=== PATIENT | male | born 1960 | race Caucasian/White ===

== ENCOUNTER 2016-11-30 09:03 | Inpatient (IN) | payer MEDICARE, OTHER ==
[~2016-11-30] VITALS: Ht 182.9 cm; Wt 63.2 kg
[~2016-11-30 09:03] MED LIST: CLON0.5T PO; CLOZ25TA4 PO; FLUV50TA3 PO
[2016-11-30 09:25] LABS: BASOPHILS # (AUTO) 0.1 /CMM (0.0-0.2); BASOPHILS % (AUTO) 0.4 % (0.0-2.0); DIFF TOTAL % 100 %; EOSINOPHILS # (AUTO) 0.1 /CMM (0.0-0.7); EOSINOPHILS % (AUTO) 0.6 % (0.0-6.0); HEMATOCRIT 38 % (39-51); HEMOGLOBIN 12.4 g/dL (13.5-17.5); LYMPHOCYTES # (AUTO) 0.8 /CMM (0.8-4.8); LYMPHOCYTES % (AUTO) 5.4 % (20.0-44.0); MEAN CORPUSCULAR HEMOGLOBIN 30 PG (26.0-33.0); MEAN CORPUSCULAR HGB CONC 33 g/dl (31.0-36.0); MEAN CORPUSCULAR VOLUME 92 fL (80-96); MONOCYTES # (AUTO) 1.5 /CMM (0.1-1.30); MONOCYTES % (AUTO) 9.5 % (2.0-12.0); NEUTROPHILS # (AUTO) 13.2 /CMM (1.8-8.9); NEUTROPHILS % (AUTO) 84.1 % (43.0-81.0); PLATELET COUNT (AUTO) 319 /CMM (150-450); RED BLOOD CELL COUNT(AUTO) 4.09 MIL/uL (4.5-6.0); WHITE BLOOD COUNT (AUTO) 15.7 K/uL (4.3-11.0)
[2016-11-30 09:36] LABS: ANION GAP 27 (5-14); CALCIUM, SERUM 9.6 mg/dL (8.5-10.1); CARBON DIOXIDE 17 mmol/L (21-32); CHLORIDE 103 mmol/L (98-107); CREATININE 1.9 mg/dL (0.6-1.3); GFR 37 mL/min (>60); GLUCOSE 112 mg/dL (74-106); SODIUM SERUM 143 mmol/L (136-145)
[2016-11-30] MEDS ORDERED: IV NS 0.9% 250 ML IV ONE (09:39)
[2016-11-30] MEDS ORDERED: IV NS 0.9% 500 ML IV ONE (09:39)
[2016-11-30] MEDS ORDERED: IV NS 0.9% 1,000 ML ONE ×2 (09:39→15:25)
[2016-11-30] MEDS ORDERED: IV SET PRIMARY 1 EA INFUS.SET MC ONE (09:39)
[2016-11-30 09:56] LABS: UREA NITROGEN, BLOOD 46 mg/dL (7-18)
[2016-11-30 10:00] LABS: KETONES,URINE 15 (NEGATIVE); LEUKOCYTE ESTERASE ,URINE Negative (NEGATIVE); PH,URINE 5.5 (5.0-8.0)
[2016-11-30] MEDS ORDERED: IV NS 0.9% 1,000 ML BAG IV ONE (10:00)
[2016-11-30 10:01] LABS: ADD UA MICROSCOPIC YES
[2016-11-30 10:07] LABS: TROPONIN I < 0.017 ng/mL (0.00-0.056)
[2016-11-30 10:14] LABS: ADD URINE CULTURE NO
[2016-11-30 10:19] LABS: CANNABINOID, URINE NEGATIVE (NEGATIVE); PHENCYCLIDINE SCREEN,URINE NEGATIVE (NEGATIVE)
[2016-11-30 10:47] LABS: LACTIC ACID 4.9 mmol/L (0.4-2.0)
[2016-11-30 10:52] LABS: *LACTIC ACID REFLEX FLAG YES
[2016-11-30] MEDS ORDERED: IV SET PRIMARY PUMP SET 1 EA INFUS.SET MC ONE ×2 (10:56→15:25)
[2016-11-30] MEDS ORDERED: VANCOMYCIN 1 GM in IV D5W 250 ML IV ONE (11:00)
[2016-11-30] MEDS ORDERED: CEFEPIME 1 GM in IV D5W 50 ML IV ONE (11:00)
[2016-11-30 12:09] LABS: BILIRUBIN,DIRECT 0.2 mg/dL (0.0-0.2); BILIRUBIN,TOTAL 0.7 mg/dL (0.2-1.0)
[2016-11-30] MEDS ORDERED: ACETAMINOPHEN 325 MG TABLET PO PRN (14:00)
[2016-11-30] MEDS ORDERED: MAG HYDROX/AL HYDROX/SIMETH 30 ML UDC PO PRN (14:00)
[2016-11-30] MEDS ORDERED: IV NS 0.9% 1,000 ML BAG IV PRN (14:00)
[2016-11-30] MEDS ORDERED: MAGNESIUM HYDROXIDE 30 ML UDC PO PRN (14:00)
[2016-11-30] MEDS ORDERED: BISACODYL SUPP (10 MG) 10 MG/SUPP.RECT SUPP.RECT RC PRN (14:00)
[2016-11-30] MEDS ORDERED: clonazePAM 0.5 MG TABLET PO PRN (14:00)
[2016-11-30] MEDS ORDERED: ONDANSETRON HCL/PF 4 MG/2 ML VIAL IVP PRN (14:00)
[2016-11-30] MEDS ORDERED: ZOLPIDEM TARTRATE 5 MG TABLET PO PRN (14:00)
[2016-11-30] MEDS ORDERED: HYDROCODONE/APAP 5/325MG 1 EACH TABLET PO PRN (14:00)
[2016-11-30] MEDS ORDERED: Z GUARD REMEDY 2 OZ OINT TP PRN (14:00)
[2016-11-30] MEDS: DOCUSATE SODIUM 100 MG CAPSULE PO SCH ×2 (14:26→16:44)
[2016-11-30 15:02] LABS: IRON, SERUM 18 ug/dl (50-175); PERCENT SATURATION 5 % (14-33); TOTAL IRON BINDING CAPACITY 352 ug/dl (250-450)
[2016-11-30 15:05] VITALS: BP 130/63
[2016-11-30] MEDS: IV NS 0.9% 1,000 ML IV PRN (15:36)
[2016-11-30 16:00] VITALS: BP 130/63
[2016-11-30] MEDS: CLOZAPINE 25 MG TABLET PO SCH (16:44)
[2016-11-30] MEDS: FLUVOXAMINE MALEATE 50 MG TABLET PO SCH (16:44)
[2016-11-30 20:00] VITALS: BP 115/53
[2016-12-01] VITALS: BP 120/60
[2016-12-01 04:00] VITALS: BP 121/66
[2016-12-01] MEDS: IV NS 0.9% 1,000 ML IV PRN ×2 (04:34→15:08)
[2016-12-01 06:33] LABS: BASOPHILS % (AUTO) 0.3 % (0.0-2.0); DIFF TOTAL % 100 %; EOSINOPHILS # (AUTO) 0.1 /CMM (0.0-0.7); EOSINOPHILS % (AUTO) 0.6 % (0.0-6.0); HEMATOCRIT 31 % (39-51); HEMOGLOBIN 10.5 g/dL (13.5-17.5); LYMPHOCYTES # (AUTO) 1.4 /CMM (0.8-4.8); LYMPHOCYTES % (AUTO) 14.6 % (20.0-44.0); MEAN CORPUSCULAR HEMOGLOBIN 31 PG (26.0-33.0); MEAN CORPUSCULAR HGB CONC 34 g/dl (31.0-36.0); MEAN CORPUSCULAR VOLUME 93 fL (80-96); MONOCYTES # (AUTO) 1.1 /CMM (0.1-1.30); MONOCYTES % (AUTO) 11.4 % (2.0-12.0); NEUTROPHILS # (AUTO) 6.8 /CMM (1.8-8.9); NEUTROPHILS % (AUTO) 73.1 % (43.0-81.0); PLATELET COUNT (AUTO) 232 /CMM (150-450); RED BLOOD CELL COUNT(AUTO) 3.36 MIL/uL (4.5-6.0); WHITE BLOOD COUNT (AUTO) 9.3 K/uL (4.3-11.0)
[2016-12-01 06:42] LABS: PROTHROMBIN TIME 10.8 SECS (9.5-12.7)
[2016-12-01 06:52] LABS: ALBUMIN 3.2 g/dL (3.4-5.0); BILIRUBIN,TOTAL 0.6 mg/dL (0.2-1.0); CALCIUM, SERUM 8.8 mg/dL (8.5-10.1); PHOSPHORUS 2.2 mg/dL (2.5-4.9); POTASSIUM 3.7 mmol/L (3.5-5.1); TOTAL PROTEIN, SERUM 6.5 g/dL (6.4-8.2)
[2016-12-01 07:08] LABS: THYROID STIMULATING HORMONE 1.373 uIU/mL (0.358-3.74)
[2016-12-01] MEDS: PANTOPRAZOLE 40 MG TABLET.DR PO SCH (07:30)
[2016-12-01 08:00] VITALS: BP 126/63
[2016-12-01 08:34] LABS: ERYTHROCYTE SEDIMENTATION RATE 13 MM/HR (0-20)
[2016-12-01] MEDS: FLUVOXAMINE MALEATE 50 MG TABLET PO SCH ×2 (08:41→17:00)
[2016-12-01] MEDS: CLOZAPINE 25 MG TABLET PO SCH ×2 (08:41→17:00)
[2016-12-01] MEDS: DOCUSATE SODIUM 100 MG CAPSULE PO SCH ×2 (08:41→17:00)
[2016-12-01 12:00] VITALS: BP 134/67
[2016-12-01] MEDS ORDERED: IV NS 0.9% 1,000 ML ONE (15:02)
[2016-12-01 16:00] VITALS: BP 131/67
[2016-12-01] MEDS ORDERED: K PHOS NEUTRAL 250 MG TABLET PO ONE (17:00)
[2016-12-01 20:00] VITALS: BP 139/74
[2016-12-02] VITALS: BP 127/81
[2016-12-02] MEDS: IV NS 0.9% 1,000 ML IV PRN ×2 (00:40→17:49)
[2016-12-02 04:00] VITALS: BP 137/75
[2016-12-02 06:39] LABS: CALCIUM, SERUM 8.2 mg/dL (8.5-10.1); CREATININE 0.9 mg/dL (0.6-1.3); PHOSPHORUS 1.9 mg/dL (2.5-4.9); POTASSIUM 3.2 mmol/L (3.5-5.1)
[2016-12-02] MEDS: PANTOPRAZOLE 40 MG TABLET.DR PO SCH (07:30)
[2016-12-02 08:00] VITALS: BP 137/71
[2016-12-02] MEDS: FLUVOXAMINE MALEATE 50 MG TABLET PO SCH ×2 (09:00→17:40)
[2016-12-02] MEDS: DOCUSATE SODIUM 100 MG CAPSULE PO SCH ×2 (09:00→17:39)
[2016-12-02] MEDS: CLOZAPINE 25 MG TABLET PO SCH ×2 (09:00→17:40)
[2016-12-02 12:00] VITALS: BP 135/78
[2016-12-02] MEDS: POTASSIUM CHLORIDE 20 MEQ TAB.PRT.SR PO SCH ×2 (12:42→13:37)
[2016-12-02] MEDS ORDERED: NEUTRA PHOS 1 POWD.PACKET PO ONE (14:00)
[2016-12-02 16:00] VITALS: BP 120/77
[2016-12-02 20:00] VITALS: BP_SYST 147; BP_SYST 97; BP_DIAS 44; BP_DIAS 84
[2016-12-03] VITALS: BP 131/73
[2016-12-03 04:00] VITALS: BP 121/67
[2016-12-03] MEDS: IV NS 0.9% 1,000 ML IV PRN ×2 (05:26→15:51)
[2016-12-03 06:01] VITALS: BP 121/67
[2016-12-03 06:59] LABS: CALCIUM, SERUM 8.1 mg/dL (8.5-10.1); CREATININE 0.8 mg/dL (0.6-1.3); PHOSPHORUS 2.5 mg/dL (2.5-4.9); POTASSIUM 3.3 mmol/L (3.5-5.1)
[2016-12-03 08:00] VITALS: BP 126/67
[2016-12-03] MEDS: FLUVOXAMINE MALEATE 50 MG TABLET PO SCH ×2 (08:00→16:27)
[2016-12-03] MEDS: DOCUSATE SODIUM 100 MG CAPSULE PO SCH ×2 (08:00→16:26)
[2016-12-03] MEDS: PANTOPRAZOLE 40 MG TABLET.DR PO SCH (08:00)
[2016-12-03] MEDS: CLOZAPINE 25 MG TABLET PO SCH ×2 (08:01→16:27)
[2016-12-03] MEDS ORDERED: POTASSIUM CHLORIDE 20 MEQ TAB.PRT.SR PO SCH (11:00)
[2016-12-03 12:00] VITALS: BP 121/71
[2016-12-03 16:00] VITALS: BP 117/68
[2016-12-03] MEDS ORDERED: FLU VACC QS 2016-17(36MOS+)/PF 0.5 ML DISP.SYRIN IM ONE (18:00)
[2016-12-03] MEDS ORDERED: PNEUMOCOCCAL 23-VAL P-SAC VAC 0.5 ML VIAL SQ ONE (18:00)
== END 2016-12-03 19:00 | DRG 682 ==
LOC: ER 09:05 → TELE-TD 11:11 → TELE1 14:29
DX: N17.0 Acute kidney failure with tubular necrosis (principal); R65.11 Systemic inflammatory response syndrome (SIRS) of non-infectious origin with acute organ dysfunction; E87.2 Acidosis; R45.851 Suicidal ideations; D50.9 Iron deficiency anemia, unspecified; E86.0 Dehydration; F31.9 Bipolar disorder, unspecified; N18.3 Chronic kidney disease, stage 3 (moderate); R33.9 Retention of urine, unspecified; D63.8 Anemia in other chronic diseases classified elsewhere; K59.00 Constipation, unspecified; F25.9 Schizoaffective disorder, unspecified; R26.9 Unspecified abnormalities of gait and mobility
CPT/HCPCS: 36415; 71010-TC; 76770-TC; 80048-TC; 80053-TC; 80061-TC; 80305; 81000-TC; 82247-TC; 82248-TC; 82272-TC; 82746; 83540-TC; 83605-TC; 83735-TC; 84100-TC; 84443-TC; 84484-TC; 85025-TC; 85652-TC; 85730-TC; 87040-TC; 87086-TC; 87400; 90732; 93307-TC; A4606; G0480; J0692; J3370; J7030; J7040; J7050; J7060; Q2036; Z7610

== ENCOUNTER 2019-01-02 16:28 | Emergency (ER) | payer MEDICARE, OTHER ==
[~2019-01-02] VITALS: Ht 175.3 cm; Wt 83.0 kg
[2019-01-02 16:28] VITALS: BP 133/80
[2019-01-02] MEDS ORDERED: KETOROLAC TROMETHAMINE 15 MG/ML VIAL ONE (20:43)
[2019-01-02] MEDS ORDERED: HYDROCODONE/APAP 5/325MG 1 EACH TABLET ONE (20:44)
[2019-01-02] MEDS: KETOROLAC TROMETHAMINE INJ 30 MG/ML VIAL IM ONE (20:54)
[2019-01-02] MEDS: HYDROCODONE/APAP 5/325MG 1 EACH TABLET PO ONE (20:55)
== END 2019-01-02 20:58 | disposition home or self-care (01) ==
LOC: ER 16:28
DX: S39.012A Strain of muscle, fascia and tendon of lower back, initial encounter (principal); M62.830 Muscle spasm of back; M19.90 Unspecified osteoarthritis, unspecified site; G89.29 Other chronic pain; F17.210 Nicotine dependence, cigarettes, uncomplicated; F20.9 Schizophrenia, unspecified; F10.10 Alcohol abuse, uncomplicated; R00.2 Palpitations; Y90.9 Presence of alcohol in blood, level not specified; Z60.2 Problems related to living alone; Z59.0 Homelessness; X58.XXXA Exposure to other specified factors, initial encounter; Y93.01 Activity, walking, marching and hiking; Y92.89 Other specified places as the place of occurrence of the external cause; Y99.8 Other external cause status
CPT/HCPCS: 96372; 99283; 99406; J1885

== ENCOUNTER 2020-04-28 08:06 | Emergency (ER) | payer MEDICARE, OTHER ==
[~2020-04-28] VITALS: Ht 182.9 cm; Wt 77.1 kg
--- NOTE | 2020-04-28 08:17 | NUR ---
pt bibra to er bed 12. per ems report, pt felt lightheaded and dizzy while trying to walk to a donut shop. pt denies ko. abrasions noted to r shoulder area. gowned and placed on monitor. stable vitals. awaiting md coello.
--- NOTE | 2020-04-28 08:19 | NUR ---
dr edwards at bedside for eval.
--- NOTE | 2020-04-28 08:19 | NUR ---
Mariel escobar in [facility] - 04/28/20 at [address] edwards at [facility] for chest xray.
[2020-04-28 08:29] LABS: BASOPHILS # (AUTO) 0.1 /CMM (0.0-0.2); BASOPHILS % (AUTO) 0.9 % (0.0-2.0); EOSINOPHILS % (AUTO) 2.3 % (0.0-6.0); HEMATOCRIT 42 % (39-51); LYMPHOCYTES # (AUTO) 1.7 /CMM (0.8-4.8); LYMPHOCYTES % (AUTO) 25.8 % (20.0-44.0); MEAN CORPUSCULAR HGB CONC 33 g/dl (31.0-36.0); MEAN CORPUSCULAR VOLUME 95 fL (80-96); MONOCYTES # (AUTO) 0.7 /CMM (0.1-1.30); MONOCYTES % (AUTO) 9.9 % (2.0-12.0); NEUTROPHILS % (AUTO) 61.1 % (43.0-81.0); PLATELET COUNT (AUTO) 123 /CMM (150-450); RED BLOOD CELL COUNT(AUTO) 4.42 MIL/uL (4.5-6.0); WHITE BLOOD COUNT (AUTO) 6.6 K/uL (4.3-11.0)
[2020-04-28] MEDS ORDERED: IV NS 0.9% 1,000 ML BAG IV ONE (08:30)
--- NOTE | 2020-04-28 08:30 | NUR ---
radiology at bedside for chest xray.
[2020-04-28 08:34] LABS: CARBON DIOXIDE 28 mmol/L (21-32); CHLORIDE 104 mmol/L (98-107); CREATININE 1.4 mg/dL (0.6-1.3); GLUCOSE 143 mg/dL (74-106); POTASSIUM 3.6 mmol/L (3.5-5.1); SODIUM SERUM 139 mmol/L (136-145); UREA NITROGEN, BLOOD 17 mg/dL (7-18)
--- NOTE | 2020-04-28 09:30 | NUR ---
pt ambulatory to restroom. steady gait. still unable to provide urine sample.
[2020-04-28] MEDS ORDERED: KETOROLAC TROMETHAMINE 15 MG/ML VIAL ONE (09:52)
[2020-04-28] MEDS ORDERED: KETOROLAC TROMETHAMINE INJ 30 MG/ML VIAL IV ONE (10:00)
--- NOTE | 2020-04-28 10:45 | NUR ---
ambulatory w/ steady gait. pt denies feeling dizzy at this time. was provided w/ breakfast tray. medically cleared. pt states no money for transportation so was given a tapcard. IV removed. Catheter intact and site benign. Pressure and 4x4 applied to site. No bleeding noted. Patient discharged to home in stable condition. Written and verbal after care instructions given. Patient verbalizes understanding of instruction.
[2020-04-28 10:48] VITALS: BP 133/86
== END 2020-04-28 10:48 | disposition home or self-care (01) ==
LOC: ER 08:11
DX: S40.211A Abrasion of right shoulder, initial encounter (principal); R55 Syncope and collapse; F41.9 Anxiety disorder, unspecified; F20.9 Schizophrenia, unspecified; F32.9 Major depressive disorder, single episode, unspecified; F17.200 Nicotine dependence, unspecified, uncomplicated; Z59.0 Homelessness; Z60.2 Problems related to living alone; Z79.899 Other long term (current) drug therapy; W18.39XA Other fall on same level, initial encounter; Y93.89 Activity, other specified; Y92.89 Other specified places as the place of occurrence of the external cause; Y99.8 Other external cause status
CPT/HCPCS: 36415; 71045; 80048; 80305; 80307; 84484; 85025; 93005; 96361; 96374; 99285; J1885; J7030; G0480